=== PATIENT | male | born 1950 | race Asian ===

== ENCOUNTER 2024-06-13 21:17 | Emergency (ER) | payer MEDICARE, OTHER, SELFPAY ==
[2024-06-13 21:22] VITALS: BP 117/67; PULSE 59; RESP 16; TEMP 36.7; O2SAT 97; BMI 22.7
--- NOTE | 2024-06-13 22:55 | ED.LOWEXIN ---
HPI - Extremity Injury (Lower) General Chief Complaint: Extremity Injury, Lower Stated Complaint: foot infection Time Seen by Provider: 06/13/24 22:46 Source: patient Mode of arrival: Ambulatory History of Present Illness HPI Narrative: 74 yoM presents for evaluation of R foot wound. 3 days ago patient noticed a red spot on his R middle toe. 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 He states that he has Keflex prescribed to him by his primary care doctor for when he travels. Yesterday he began to take some Keflex, but today the right middle toe wound seems to have small amount of pus coming from it with spreading redness, and so decided to present for evaluation. His concern is that he may have MRSA. Related Data Previous Rx's Medication Instructions Recorded doxycycline hyclate 100 mg tablet 100 mg PO BID #14 tabs 06/13/24 doxycycline hyclate 100 mg tablet 100 mg PO BID #14 tabs 06/13/24 Allergies Allergy/AdvReac Type Severity Reaction Status Date / Time No Known Drug Allergies Allergy Verified 06/13/24 21:21 Patient History Social History Smoking Status: Never smoker Smoking Status: Never smoker alcohol intake frequency: 0-2 drinks per day Alcohol type: wine Substance Use Type: does not use Exam Initial Vital Signs Initial Vital Signs: Vital Signs Temperature 98.1 F 06/13/24 21:22 Pulse Rate 59 L 06/13/24 21:22 Respiratory Rate 16 06/13/24 21:22 Blood Pressure 117/67 06/13/24 21:22 Pulse Oximetry 97 06/13/24 21:22 Oxygen Delivery Method Room Air 06/13/24 21:22 Const: Awake, alert, no acute distress, nontoxic appearing MSK: Atraumatic, full range of motion, pulses equal Skin: Warm, Dry, small wound proximal right 3rd toe with approximately 2 cm of surrounding erythema. Small amount of purulent material able to be expressed from the wound Neuro: AO x3, CN II-XII grossly intact, moves all extremities Course Orders Ordered: ED Orders 06/13/24 22:53 Wound Culture and Gram Stain Stat Discontinued Medications Doxycycline Hyclate (Doxycycline Hyclate 100 Mg Tablet) 100 mg PO NOW ONE Stop: 09/09/24 22:56 Last Admin: 06/13/24 23:01 Dose: 100 mg Documented By: ANAN Vital Signs Vital signs: Vital Signs - 8 hr 06/13/24 21:22 Temperature 98.1 F Pulse Rate 59 L Respiratory Rate 16 Blood Pressure 117/67 Pulse Oximetry 97 Oxygen Delivery Method Room Air MDM - Extremity Injury (Lower) MDM Narrative Medical decision making narrative: Small wound right 3rd toe. Small amount of purulent material able to be expressed from wound - collected as culture and sent to lab. Patient denies injury, states he thinks it may have been a small insect bite. Already on keflex prescribed by patient's doctor at home - concern is for MRSA. Patient to be started on doxycycline for MRSA coverage, 1st dose given in the emergency department, rx sent to pharmacy of choice. Discharge Plan Departure Patient Disposition: Home Clinical Impression: Abscess of toe Instructions: DI for Cellulitis -- Adult Activity Restrictions/Additional Instructions: Your wound has been cultured and sent to our micro lab. If sensitivities do not show susceptibility to doxycycline we will contact you and update your antibiotics appropriately. Prescriptions: New doxycycline hyclate 100 mg tablet 100 mg PO BID Qty: 14 0RF doxycycline hyclate 100 mg tablet 100 mg PO BID Qty: 14 0RF Referrals: Miscellaneous,Doctor, [Primary Care Provider] - Stand Alone Forms: Patient Portal/API
[2024-06-13] MEDS: DOXYCYCLINE HYCLATE 100 MG TABLET PO (23:01)
== END 2024-06-13 23:16 | disposition home or self-care (01) ==
PROVIDERS: Emergency Provider Emergency Medicine
DX: L02.611 Cutaneous abscess of right foot (principal)
CPT/HCPCS: 87070; 87075; 87077; 87147; 87186; 87205; 99283